=== PATIENT | male | born 2000 | race Caucasian/White ===

== ENCOUNTER 2023-01-03 17:41 | Outpatient (CLI) | payer OTHER | END 2023-01-03 17:42 | disposition critical access hospital (66) | LOC: EMS 17:41 | DX: R55 Syncope and collapse (principal); R56.9 Unspecified convulsions | CPT/HCPCS: A0425; A0429 ==

== ENCOUNTER 2023-01-03 18:05 | Emergency (ER) | payer OTHER ==
[2023-01-03] MEDS ORDERED: SODIUM CHLORIDE 0.9% 1,000 ML IV STA (18:30)
[2023-01-03 18:34] LABS: BASOPHILS # (AUTO) 0.1 10^3/uL (0.0-0.1); BASOPHILS % (AUTO) 0.7 %; EOSINOPHILS # (AUTO) 0.1 10^3/uL (0.0-0.7); EOSINOPHILS % (AUTO) 1.7 %; HCT - HEMATOCRIT 43.6 % (42.0-52.0); LYMPHOCYTES # (AUTO) 1.8 10^3/uL (1.5-3.5); LYMPHOCYTES % (AUTO) 20.8 %; MEAN CORPUSCULAR HEMOGLOBIN 29.7 pg (27.0-31.0); MEAN CORPUSCULAR HGB CONC 32.1 g/dL (32.0-36.0); MEAN CORPUSCULAR VOLUME 92.6 fL (80.0-94.0); MEAN PLATELET VOLUME 9.8 fL (7.4-11.4); MONOCYTES # (AUTO) 0.7 10^3/uL (0.0-1.0); MONOCYTES % (AUTO) 7.8 %; NEUTROPHILS # (AUTO) 5.8 10^3/uL (1.5-6.6); NEUTROPHILS % (AUTO) 68.5 %; PLT - PLATELET COUNT 285 10^3/uL (130-450); RED BLOOD COUNT 4.71 10^6/uL (4.70-6.10); RED CELL DISTRIBUTION WIDTH 12.2 % (12.0-15.0); WHITE BLOOD COUNT 8.5 x10^3/uL (4.8-10.8)
--- NOTE | 2023-01-03 18:35 | ED Physician Documentation ---
ED Addendum - Addendum Addendum: 01/03/23 18:32 Brief note evaluation: The patient was with his father at [facility] and [facility]. The patient states he did feel like he had to go to the bathroom but not too badly. They were then standing in line and the patient felt momentarily lightheaded with them the vision and then next to where being awakening on the floor. His father states he appeared like he was going to pass out. The father tried to catch him but the patient fell face forward striking his chin. Small laceration. The father noted tremoring type movements of the arms and legs and then stiffness lasting about 10 seconds. The patient awoke a few minutes after. The patient states he was aware of EMS arriving. No history of seizures nor prior fainting episodes (he states he did faint once when he was a young teenager). He had been feeling well otherwise last few days without any illness, fevers, cough, vomiting, diarrhea. No new medications. He is awake and alert and conversant now. We can get basic labs and EKG and watch him on the monitor. Can get some IV fluids. Given the impact to the chin and seizure-wang type movements, I will order a CT of the head.
[2023-01-03 18:49] LABS: ALBUMIN 3.9 g/dL (3.2-5.5); ALBUMIN/GLOBULIN RATIO 1.1 (1.0-2.2); CALCIUM 8.8 mg/dL (8.5-10.3); CREATININE 0.9 mg/dL (0.6-1.2); TOTAL PROTEIN 7.3 g/dL (6.7-8.2)
--- NOTE | 2023-01-03 19:04 | CT Report ---
PROCEDURE: HEAD WO INDICATIONS: syncope and seizure-wang movements TECHNIQUE: Noncontrast 4.5 mm thick angled axial sections acquired from the foramen magnum to the vertex. For r adiation dose reduction, the following was used: automated exposure control, adjustment of mA and/or kV according to patient size. COMPARISON: None. FINDINGS: Image quality: Excellent. CSF spaces: Basal cisterns are patent. No extra-axial fluid collections. Ventricles are normal in size and shape. Brain: No midline shift. No intracranial masses or hemorrhage. Jones-white matter interface is norm al. Skull and face: Calvarium and visualized facial bones are intact, without suspicious lesions. Sinuses: Visualized sinuses and mastoids are clear. IMPRESSION: CT head without acute intracranial abnormalities. No evidence for mass or mass effect. If there is persistent clinical concern for pathology. Consider further evaluation with nonemergent Casimiro OLIVAS. Reviewed by: Catracho Branham MD on 01/03/2023 7:03 PM PDT Approved by: Catracho Branham MD on 01/03/2023 7:03 PM PDT Station ID: [id number]
[2023-01-03 19:34] VITALS: BP 133/86
--- NOTE | 2023-01-03 19:51 | ED Physician Documentation ---
PD HPI SYNCOPE - Stated complaint Stated Complaint: SYNCOPE - Chief complaint Chief Complaint: Neuro - History obtained from History obtained from: Patient, Family - History of Present Illness Witnessed: Witnessed - Additional information Additional information: This is a 22-year-old male with no significant past medical history other than a prior vasovagal syncopal episode who presents after a witnessed syncope. The patient States he was standing in line at a store, and he stated he needed to go to the bathroom, he went to go to the bathroom and then had tunnel vision and then next thing he knew he was waking up in the ambulance. He apparently collapsed to the ground and had about a 10-second episode of mild shaking but no loss of bowel or bladder, no tongue biting. He Feels like he chipped a couple of teeth. He was not postictal. He did fall face forward and hit his chin on the ground and sustained a small laceration. Patient currently feels well, back to baseline, and has no concerns other than he feels like he may have chipped some teeth. Review of Systems Constitutional: reports: Reviewed and negative Eyes: reports: Reviewed and negative Ears: reports: Reviewed and negative Nose: reports: Reviewed and negative Throat: reports: Reviewed and negative Cardiac: reports: Reviewed and negative Respiratory: reports: Reviewed and negative GI: reports: Reviewed and negative : reports: Reviewed and negative Skin: reports: Laceration (s) Musculoskeletal: reports: Reviewed and negative Neurologic: reports: Syncope, Head injury, LOC. denies: Generalized weakness, Focal weakness, Numbness, Difficulty speaking, Near syncope, Seizure, Confused, Altered mental status, Unresponsive, Headache Psychiatric: reports: Reviewed and negative Endocrine: reports: Reviewed and negative PD PAST MEDICAL HISTORY - Past Medical History Past Medical History: No - Allergies Allergies/Adverse Reactions: Allergies Allergy/AdvReac Type Severity Reaction Status Date / Time No Known Drug Allergies Allergy Verified 01/03/23 18:08 - Social History Does the pt smoke?: No Smoking Status: Never smoker PD ED PE NORMAL - Vitals Vital signs reviewed: Yes - General General: Alert and oriented X 3, No acute distress, Well developed/nourished - HEENT HEENT: PERRL, EOMI, Ears normal, Moist mucous membranes, Pharynx benign, Other (1.5cm laceration of the chin to subq tissue. ) - Neck Neck: No bony TTP, C-Spine cleared by NEXUS criteria - Cardiac Cardiac: RRR, No murmur - Respiratory Respiratory: No respiratory distress, Clear bilaterally - Abdomen Abdomen: Normal bowel sounds, Soft, Non tender, Non distended - Back Back: No CVA TTP, No spinal TTP - Derm Derm: Normal color, Warm and dry, No rash - Extremities Extremities: No deformity, No tenderness to palpate, Normal ROM s pain, No edema, No calf tenderness / cord - Neuro Neuro: Alert and oriented X 3, No motor deficit, No sensory deficit, Normal speech Eye Opening: Spontaneous Motor: Obeys Commands Verbal: Oriented GCS Score: 15 - Psych Psych: Normal mood, Normal affect Results - Vitals Vitals: Vital Signs - 24 hr 01/03/23 01/03/23 01/03/23 18:08 18:51 19:00 Temperature 36.5 C Heart Rate 104 H 56 L 76 Respiratory 18 22 19 Rate Blood Pressure 132/78 H 134/74 H 133/86 H O2 Saturation 99 99 100 01/03/23 19:30 Temperature Heart Rate 71 Respiratory 16 Rate Blood Pressure 133/86 H O2 Saturation 99 Oxygen O2 Source Room air - Labs Labs: Laboratory Tests 01/03/23 01/03/23 01/03/23 18:27 18:28 18:28 WBC 8.5 RBC 4.71 Hgb 14.0 Hct 43.6 MCV 92.6 MCH 29.7 MCHC 32.1 RDW 12.2 Plt Count 285 MPV 9.8 Neut # (Auto) 5.8 Lymph # (Auto) 1.8 [place] # (Auto) 0.7 Eos # (Auto) 0.1 Baso # (Auto) 0.1 Absolute Nucleated RBC 0.00 Nucleated RBC % 0.0 Sodium 138 Potassium 4.0 Chloride 104 Carbon Dioxide 26 Anion Gap 8.0 BUN 20 Creatinine 0.9 Estimated GFR (MDRD) 107 Glucose 122 H POC Whole Bld Glucose 133 H Calcium 8.8 Magnesium Total Bilirubin 1.0 AST 17 ALT 15 Alkaline Phosphatase 76 Troponin I High Sens Total Protein 7.3 Albumin 3.9 Globulin 3.4 Albumin/Globulin Ratio 1.1 Lipase 25 01/03/23 01/03/23 18:28 18:28 WBC RBC Hgb Hct MCV MCH MCHC RDW Plt Count MPV Neut # (Auto) Lymph # (Auto) [place] # (Auto) Eos # (Auto) Baso # (Auto) Absolute Nucleated RBC Nucleated RBC % Sodium Potassium Chloride Carbon Dioxide Anion Gap BUN Creatinine Estimated GFR (MDRD) Glucose POC Whole Bld Glucose Calcium Magnesium 1.9 Total Bilirubin AST ALT Alkaline Phosphatase Troponin I High Sens < 2.3 L Total Protein Albumin Globulin Albumin/Globulin Ratio Lipase - Rads (name of study) No standard instances Relevant Findings:: Final report received Procedures - Laceration (location) Face Other Length in cm: 1.5 Wound type: Linear, Into subcut fat Anesthesia: Lidocaine 1% with epi Wound preparation: Irrigated copiously NS Skin layer closure: Nylon, Running, Size #-0 - enter number (5), Sutures - enter # (3) Other: Patient tolerated well, No complications PD Medical Decision Making - ED course Complexity details: reviewed results, re-evaluated patient, considered differential, d/w patient, d/w family ED course: This is a 22-year-old male who presented after a syncopal episode as described in HPI. He also sustained a chin laceration during the fall. His syncope is likely vasovagal, it does not sound as though it was a seizure, he had no tonic- clonic type movements, no tongue biting, no loss of bowel or bladder no postictal period. The patient has no current symptoms and feels back to baseline at this time. He has had a prior episode of vasovagal syncope as well making that the more likely cause. His labs were reviewed and are reassuring, no electrolyte abnormalities, anemia or hypotension causing his symptoms. His head CT was reviewed and likewise is negative. He did require suture repair of a small chin laceration which was performed as described above. Sutures are dissolvable and he was advised on home wound care instructions as well as return precautions. He does feel like he chipped some teeth during the fall and will follow-up with his dentist on outpatient basis.He is safe for dismissal home at this time, return precautions reviewed with both him and his mother. Departure - Departure Disposition: 01 Home, Self Care Clinical Impression: Syncope and collapse Laceration of chin Qualifiers: Encounter type: initial encounter Qualified Code(s): S01.81XA - Laceration without foreign body of other part of head, initial encounter Chipped tooth Qualifiers: Encounter type: initial encounter Fracture type: closed Qualified Code(s): S02.5XXA - Fracture of tooth (traumatic), initial encounter for closed fracture Condition: Good Instructions: ED Laceration Facial Sutr Tape, ED Syncope Vasovagal Comments: I have placed 3 sutures in your chin, these are dissolvable and do not need to be removed. If you get the area wet such as in the shower, please gently pat dry. Do not soak or go swimming however until the wound is healed. This will take about 5 days. If there are any signs of infection of this area such as redness, purulent drainage or other new concerns, please see your PCP or return to the ER. Please follow-up as planned with your dentist. If you have recurrent episodes of syncope, return to the ER or see your PCP. Discharge Date/Time: 01/03/23 19:58
== END 2023-01-03 19:58 | disposition home or self-care (01) ==
LOC: ED 18:05
DX: R55 Syncope and collapse (principal); S01.81XA Laceration without foreign body of other part of head, initial encounter; S02.5XXA Fracture of tooth (traumatic), initial encounter for closed fracture; W18.30XA Fall on same level, unspecified, initial encounter; Y92.89 Other specified places as the place of occurrence of the external cause
CPT/HCPCS: 12011; 36415; 80053; 83690; 83735; 84484; 85025; 93005; 99283; 99284